=== PATIENT | female | born 1945 | race Caucasian/White ===

== ENCOUNTER 2017-10-20 05:31 | Day surgery (SDC) | payer OTHER, BC ==
[~2017-10-20] VITALS: Ht 154.9 cm; Wt 45.4 kg
--- NOTE | ~2017-10-20 | O ---
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 PROCEDURE: 1. Excision of basal cell carcinoma of left lower lid and cheek with myocutaneous flap repair of defect. 2. Repair of left lower lid ectropion by flap. SURGEON: Jeffrey Silva M.D. HOOK PULLER: None. ANESTHESIA: MAC. COMPLICATIONS: None. INDICATIONS FOR SURGERY: This pleasant 72-year-old woman has a biopsy proven basal cell carcinoma on her left lower lid. In addition, she has an independent left lower lid ectropion. She presents today for excision of the tumor of her left lower lid with frozen sections and subsequent reconstruction of the ensuing defect. Correction of the ectropion is also planned as an independent procedure. Informed consent was obtained to include but not limited to the potential risk for loss of vision, bleeding, infection, failure to improve the problem, the potential need for further surgery or treatment. DESCRIPTION OF PROCEDURE: The patient was taken to the operating room where 2% Xylocaine with epinephrine mixed with equal parts 0.75% Marcaine with Wydase was administered to the left lower lid and the left cheek. An additional aliquot of anesthetic was administered to the left lateral canthus and the left infratemporal fossa to anesthetize for the ectropion repair. The patient was subsequently prepped and draped in the usual sterile fashion. A fine tip skin marking pen was then utilized to outline the lesion including [address] [address] OPERATIVE REPORT Name: NAT VELÁSQUEZ Room #: 150-1 [facility].#: [id number] Admission: 10/20/17 Attend Phys: Jeffrey Silva MD Discharge: Date of : 41 Report #: [id number] approximately 2 mm of normal appearing tissue around its margins. The incisions were then made with a 15C blade and the underlying dissection in the orbicularis taken down on to the orbital septum and then the soft tissues in the cheek. The specimen was oriented on a drawing for the waiting pathologist as hemostasis was achieved in the field with pinpoint monopolar cautery. The pathologist snap froze that tissue and found that the margins were clear and the basal cell carcinoma had been completely removed. A myocutaneous flap was then developed inferolaterally. The relaxing incisions were made to extend in a skin tension fold oriented in that direction. Hemostasis was then re-achieved. The flap was then advanced and secured with multiple interrupted 6-0 plain gut sutures. The left lateral canthus was then clamped with a Henry clamp. A sharp canthotomy and cantholysis was subsequently performed. A tarsal strip was then prepared removing the lash bearing portion of the redundant lid margin and the redundant tarsal plate. The tarsal strip was then advanced and secured to the internal portion of the lateral orbital tubercle with interrupted 5-0 Prolene sutures. The ectropion repair was completed as the skin was closed with interrupted 6-0 plain gut sutures. Erythromycin ophthalmic ointment was then placed on both incisions and the patient subsequently transported to the recovery area having tolerated the procedures well with no anesthetic or operative complications being noted. By: [id number] Jeffrey Silva MD /nt
[~2017-10-20 05:31] MED LIST: CARVEDILOL3.125 MG PO; CRESTOR5 MG PO; LISINOPRIL20 MG PO; NORVASC5 MG PO; VITAMIN D-32000 UNIT PO
[2017-10-20 14:18] VITALS: BP 143/62
== END 2017-10-20 17:00 | disposition home or self-care (01) ==
LOC: OR 05:31 → TBA 05:32 → OR 06:41
DX: C44.119 Basal cell carcinoma of skin of left eyelid, including canthus (principal); H02.105 Unspecified ectropion of left lower eyelid; I10 Essential (primary) hypertension; E78.5 Hyperlipidemia, unspecified; I48.91 Unspecified atrial fibrillation; Z79.899 Other long term (current) drug therapy; Z79.01 Long term (current) use of anticoagulants; Z90.710 Acquired absence of both cervix and uterus; Z98.41 Cataract extraction status, right eye; Z98.42 Cataract extraction status, left eye; Z98.890 Other specified postprocedural states
CPT/HCPCS: 50010; 50101; 50386; 50398; 51636; 56527; 56531; 62110; 62850; 70005